=== PATIENT | male | born 2005 | race Caucasian/White ===

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

== ENCOUNTER 2025-07-16 23:28 | Emergency (ER) | payer BC ==
[~2025-07-16] VITALS: Ht 185.4 cm; Wt 81.8 kg
[2025-07-16 23:30] VITALS: TEMP 97.4
[2025-07-16] MEDS ORDERED: DEXM1CAP16 (23:37)
[2025-07-17] MEDS ORDERED: ISOVUE-370 76% 100 ML VIAL As Ordered ONE (00:30)
[2025-07-17 00:43] LABS: ALT/SGPT 28 U/L (7.0-40); AST/SGOT 24 U/L (<34); BASO # 0.0 10^3/uL (0.0-0.2); BASO % 0.5 % (0.0-1.0); CALCIUM LEVEL 9.7 MG/DL (8.5-10.1); CARBON DIOXIDE LEVEL 28 MMOL/L (20-31); CHLORIDE LEVEL 105 MMOL/L (98-107); CREATININE FOR GFR 1.01 MG/DL (0.70-1.30); EOS # 0.2 10^3/uL (0.0-0.5); EOS % 2.0 % (0.0-3.0); GLOMERULAR FILTRATION RATE > 90.0 (>60); LYMPH # 2.2 10^3/uL (1.5-5.0); LYMPH % 29.5 % (24.0-44.0); MONO # 1.0 10^3/uL (0.0-0.8); MONO % 12.8 % (2.0-8.0); NEUTROPHILS # 4.1 10^3/uL (1.5-8.5); NEUTROPHILS % 54.8 % (36.0-66.0); PLATELET COUNT, AUTOMATED 211 10^3/uL (150-450); POTASSIUM SERUM 4.0 MMOL/L (3.5-5.1); SODIUM LEVEL 142 MMOL/L (136-145)
[2025-07-17] MEDS: KETOROLAC 30 MG/ML 1 ML VIAL IV ONE (01:41)
[2025-07-17] MEDS: NS 500 ML IV ONE (01:49)
[2025-07-17 02:50] VITALS: BP 119/56; O2SAT 98
== END 2025-07-17 02:49 | disposition home or self-care (01) ==
LOC: M ED 23:28
DX: K52.9 Noninfective gastroenteritis and colitis, unspecified (principal); I88.0 Nonspecific mesenteric lymphadenitis; F90.9 Attention-deficit hyperactivity disorder, unspecified type; Z91.030 Bee allergy status; Z91.09 Other allergy status, other than to drugs and biological substances; Z79.899 Other long term (current) drug therapy
CPT/HCPCS: 74177; 80047; 80053; 83605; 83690; 84145; 85025; 96374; 99284; J1885; Q9967